=== PATIENT | female | born 1975 | race Caucasian/White ===

== ENCOUNTER → 2024-10-08 13:45 | Outpatient (CLI) | payer OTHER, SELFPAY ==
--- NOTE | 2024-10-08 13:48 | DI.RAD.S_ITS ---
PROCEDURE: XR HIP W PEL IF DONE LT 2V INDICATIONS: left hip pain, chronic TECHNIQUE: AP pelvis with lateral view(s) of the left hip(s). COMPARISON: None. FINDINGS: Bones: No fractures or dislocations. Moderate to severe left hip osteoarthritic degenerative change includes significant joint space narrowing with marginal osteophytosis and mild flattening of the femoral head. There is acetabular subchondral sclerosis. Pelvic ring appears intact. No suspicious bony lesions. Soft tissues: The visualized bowel gas pattern is normal. No suspicious soft tissue calcifications. IMPRESSION: Degenerative change of the left hip without evidence of acute osseous abnormality. Dictated by: Vince Johnson M.D. on 10/08/2024 at 17:15 Approved by: Vince Johnson M.D. on 10/08/2024 at 17:16
== END ==
LOC: RAD 13:47
PROVIDERS: PCP Family Medicine; Referring Provider Family Medicine; Visit Provider Family Medicine
DX: M25.552 Pain in left hip (principal)
CPT/HCPCS: 73502

== ENCOUNTER → 2024-10-18 10:53 | Outpatient (CLI) | payer OTHER, SELFPAY ==
[2024-10-18 18:06] LABS: Add Manual Diff / Slide Review NO; Basophils Absolute Auto 0 /uL (0-100); Basophils Percent Auto 0.8 % (0-2); Eosinophils Absolute Auto 100 /uL (0-450); Hematocrit 42.6 % (36-46); Hemoglobin 14.5 g/dL (12.0-16.0); Lymphocytes Absolute Auto 2400 /uL (1100-4500); Lymphocytes Percent Auto 38.9 % (25-40); Mean Corpuscular HGB Conc 34.1 % (30-36); Mean Corpuscular Hemoglobin 30.9 PG (26-34); Mean Corpuscular Volume 90.8 fL (80-100); Monocytes Absolute Auto 300 /uL (0-900); Monocytes Percent Auto 4.9 % (3-14); Neutrophils Absolute Auto 3300 /uL (1500-7000); Neutrophils Percent Auto 53.4 % (50-75); Platelet Count 391 X10^3/uL (150-400); Red Blood Cell Count 4.69 X10^6/uL (4.0-5.2); Red Cell Distribution Width 12.6 % (11.6-14.8); White Blood Cell Count 6.2 X10^3/uL (4.5-11.0)
[2024-10-18 18:11] LABS: Alanine Aminotransferase 65 IU/L (<35); Albumin 4.3 g/dL (3.5-5.0); Albumin Globulin Ratio 1.6 (1.0-2.8); Alkaline Phosphatase 80 U/L (38-126); Aspartate Aminotransferase 35 IU/L (14-36); BUN Creatinine Ratio 22.2 (6-22); Bilirubin Total 0.6 mg/dL (0.2-1.3); Blood Urea Nitrogen 14 mg/dL (7-17); Calcium 9.8 mg/dL (8.4-10.2); Carbon Dioxide 28 mmol/L (22-32); Chloride 102 mmol/L (98-107); Cholesterol 251 mg/dL (140-199); Estimated Glomerular Filt Rate > 60 mL/min (>60); Globulin 2.7 g/dL (1.7-4.1); Glucose 90 mg/dL (70-100); HDL Cholesterol 68 mg/dL (40-60); HEMOLYSIS < 15 (0-50); LDL Cholesterol Calculated 161 mg/dL (<100); Potassium 4.5 mmol/L (3.4-5.1); Sodium 137 mmol/L (137-145); Triglycerides 111 mg/dL (35-150)
[2024-10-18 18:41] LABS: Thyroid Stimulating Hormone 1.22 uIU/mL (0.47-4.68)
== END ==
PROVIDERS: PCP Family Medicine; Visit Provider Family Medicine
DX: R23.2 Flushing (principal); E78.2 Mixed hyperlipidemia; Z13.6 Encounter for screening for cardiovascular disorders; Z13.1 Encounter for screening for diabetes mellitus; Z13.29 Encounter for screening for other suspected endocrine disorder; Z13.0 Encounter for screening for diseases of the blood and blood-forming organs and certain disorders involving the immune mechanism
CPT/HCPCS: 80053; 80061; 84443; 85025

== ENCOUNTER → 2024-12-31 11:55 | Outpatient (CLI) | payer OTHER, SELFPAY ==
--- NOTE | 2024-12-31 12:13 | EKG_ITS ---
[address] [address] Test Date: 2024-12-31 Pat Name: Liberte Liberte Department: [facility] Room: Gender: Female Data Collection Technician: DWIGHT : 1975 Requested By: Order Number: [id number] Reading MD: Jose Leonardo Measurements Intervals [place] Rate: 76 P: 52 CT: 186 QRS: 41 QRSD: 76 T: 41 QT: 366 QTc: 411 Interpretive Statements Normal sinus rhythm Low voltage QRS Electronically Signed On 12-31-2024 14:02:02 PDT by Jose Leonardo
[2024-12-31 12:53] LABS: Hemoglobin A1C% w Est Avg Glu 4.9 % (4.0-6.0)
[2024-12-31 13:02] LABS: Albumin 4.6 g/dL (3.5-5.0); BUN Creatinine Ratio 17.7 (6-22); Blood Urea Nitrogen 11 mg/dL (7-17); Calcium 9.7 mg/dL (8.4-10.2); Carbon Dioxide 29 mmol/L (22-32); Chloride 102 mmol/L (98-107); Estimated Glomerular Filt Rate > 60 mL/min (>60); Glucose 72 mg/dL (70-99); HEMOLYSIS < 15 (0-50); Potassium 4.3 mmol/L (3.4-5.1); Sodium 139 mmol/L (137-145)
[2024-12-31 13:09] LABS: Add Manual Diff / Slide Review NO; Basophils Absolute Auto 0 /uL (0-100); Basophils Percent Auto 0.5 % (0-2); Eosinophils Absolute Auto 100 /uL (0-450); Eosinophils Percent Auto 1.4 % (2-4); Hematocrit 42.6 % (36-46); Hemoglobin 14.9 g/dL (12.0-16.0); Lymphocytes Absolute Auto 2300 /uL (1100-4500); Lymphocytes Percent Auto 35.8 % (25-40); Mean Corpuscular Hemoglobin 31.5 PG (26-34); Mean Corpuscular Volume 89.8 fL (80-100); Monocytes Absolute Auto 300 /uL (0-900); Monocytes Percent Auto 4.1 % (3-14); Neutrophils Absolute Auto 3800 /uL (1500-7000); Neutrophils Percent Auto 58.2 % (50-75); Platelet Count 380 X10^3/uL (150-400); Red Blood Cell Count 4.74 X10^6/uL (4.0-5.2); White Blood Cell Count 6.5 X10^3/uL (4.5-11.0)
[2024-12-31 13:11] LABS: Prealbumin 25.7 mg/dL (17.6-36.0)
[2024-12-31 15:46] LABS: Vitamin D 25 Hydroxy (D3) 30.1 ng/mL (30.0-100.0)
== END ==
PROVIDERS: PCP Family Medicine; Referring Provider Orthopaedic Surgery Adult Reconstructive Orthopaedic Surgery; Visit Provider Orthopaedic Surgery Adult Reconstructive Orthopaedic Surgery
DX: Z01.818 Encounter for other preprocedural examination (principal); M16.12 Unilateral primary osteoarthritis, left hip; Z68.37 Body mass index [BMI] 37.0-37.9, adult
CPT/HCPCS: 36415; 72170; 80048; 82040; 82306; 83036; 84134; 85025; 93005; 99214

== ENCOUNTER → 2025-02-06 07:50 | Outpatient (CLI) | payer BC, SELFPAY ==
--- NOTE | 2025-02-06 07:52 | DI.MG.S_ITS ---
MM screening mammo BI: 02/06/2025. BI-RADS: 1 CLINICAL: 49-year old female for bilateral screening mammogram. Tyrer-Cuzick lifetime risk of 10.5%. No personal or first-degree family history of breast cancer. PRIOR EXAMS: 03/29/23, 12/28/22. MAMMOGRAPHY TECHNIQUE: 2D and 3D (tomosynthesis) digital mammographic views obtained, with additional images as needed for full coverage. Current study was also evaluated with a Computer Aided Detection (CAD) system. DENSITY C. The breasts are heterogeneously dense, which may obscure small masses. MAMMOGRAPHY FINDINGS Bilateral: No suspicious mass, asymmetry, microcalcification, or other abnormality seen. No significant change from comparison. IMPRESSION: * No evidence of malignancy. RECOMMENDATIONS Bilateral * Annual screening mammography. OVERALL ASSESSMENT CATEGORY BI-RADS-1: Negative. The [employer] recommends annual screening mammography beginning at age 40 for women with average risk of breast cancer. ELECTRONICALLY SIGNED: Scott Gleason M.D. on 02/06/2025 at 01:35:54 PM PT Interpreting Station ID: [id number]
[2025-02-06 09:13] LABS: Alanine Aminotransferase 36 IU/L (<35); Albumin 4.3 g/dL (3.5-5.0); Albumin Globulin Ratio 1.5 (1.0-2.8); Alkaline Phosphatase 66 U/L (38-126); Cholesterol 215 mg/dL (140-199); Globulin 2.8 g/dL (1.7-4.1); HDL Cholesterol 66 mg/dL (40-60); HEMOLYSIS < 15 (0-50); Total Protein 7.1 g/dL (6.3-8.2); Triglycerides 79 mg/dL (35-150)
[2025-02-07 00:10] LABS: Hepatitis A Antibody IgM Negative (Negative); Hepatitis B Core Antibody IgM Negative (Negative); Hepatitis C Antibody Non Reactive (Non Reactive)
== END ==
PROVIDERS: PCP Family Medicine; Referring Provider Family Medicine; Visit Provider Family Medicine
DX: Z12.31 Encounter for screening mammogram for malignant neoplasm of breast (principal); R92.333 Mammographic heterogeneous density, bilateral breasts; R74.01 Elevation of levels of liver transaminase levels; E78.2 Mixed hyperlipidemia; M16.12 Unilateral primary osteoarthritis, left hip
CPT/HCPCS: 36415; 77063; 77067; 80061; 80074; 80076; 99214

== ENCOUNTER 2025-03-03 11:26 | Day surgery (SDC) | payer BC, SELFPAY ==
[2025-02-26 08:20] VITALS: BMI 39.1
[2025-03-03] VITALS (11 sets, daily range): BP systolic 87–116; BP diastolic 51–84; PULSE 75–94; RESP 14–20; TEMP 35.5–36.3; O2SAT 94–99; BMI 36.7
--- NOTE | 2025-03-03 06:00 | DI.RAD.S_ITS ---
PROCEDURE: XR HIP W PEL IF DONE LT 2V INDICATIONS: post-op NADYA LEFT TECHNIQUE: 2 view(s) of the hip acquired. COMPARISON: [facility], [facility], XR HIP W PEL IF DONE LT 2V, 10/08/2024, 13:44. FINDINGS: Bones: Patient is status post left hip arthroplasty, with hardware components in expected positions. The hip joint appears congruent. The visualized bony structures appear intact. Soft tissues: Overlying postoperative changes are noted. No suspicious soft tissue densities. IMPRESSION: Expected post-operative appearance of a hip arthroplasty. Dictated by: Vince Johnson M.D. on 03/05/2025 at 18:58 Approved by: Vince Johnson M.D. on 03/05/2025 at 18:59
--- NOTE | 2025-03-03 12:08 | PT-IP ANOTE ---
PT order received. PT calls post-op area who reports that pt hasn't even had surgery yet and is scheduled for surgery at 1345. Will d/c this order and await a new one post-op with any precautions and after a op report is available.
--- NOTE | 2025-03-03 12:09 | OT.IPNOTE ---
OT received OT eval. PT called and post-op area and discussed pt order. Pt is scheduled for surgery at 1345. D/C current order. Pt will need a new order following sx.
[2025-03-03] MEDS: ACETAMINOPHEN 325 MG TABLET 975 MG PO (13:12)
[2025-03-03] MEDS: LACTATED RINGERS 1,000 ML 100 ML IV ×2 (13:14→20:10)
--- NOTE | 2025-03-03 13:43 | PM.PREOP ---
Pre-operative Note Interval Note History & Physical reviewed/Exam performed by Physician: Yes Changes to H&P: No H&P completed within 30 days and has changed as indicated here:: Operative side is 8 mm shorter radiographically and this aligns with physical exam. Discussed with patient that operative side will feel like it has been lengthened which is intentional
[2025-03-03] MEDS: TRANEXAMIC ACID 1,000 MG VIAL 1000 MG INJ ×2 (15:10→17:04)
[2025-03-03] MEDS: CEFAZOLIN 2 GM/100 ML PREMIX 100 ML IV ×2 (15:15→20:10)
--- NOTE | 2025-03-03 15:32 | SUR.OPER ---
Supine on padded [place] table with bilateral legs secured in padded positioning boots and suspended in positioning spars, operative leg in traction per surgeon. Head on one pillow. Bilateral arms secured on padded armboards <90 degrees abduction. Padded perineal post in place per surgeon.
--- NOTE | 2025-03-03 15:37 | SUR.OPER ---
3% hydrogen peroxide, povidone-iodine, normal saline irrigation
[2025-03-03] MEDS: BUPIVACAINE 0.5% W/ EPI (PF) 30 ML VIAL INJ ×2 (15:42→15:43)
[2025-03-03] MEDS: KETOROLAC 30 MG/ML VIAL INJ (15:44)
--- NOTE | 2025-03-03 17:02 | P.OP_ITS ---
Operative Date/Time/Diagnoses Date of procedure: 03/03/25 Time of procedure: 15:00 Pre-op diagnosis: Left hip osteoarthritis Post-op diagnosis: same Procedure & Clinicians Procedure: Left total hip arthroplasty with computer-assisted fluoroscopic analysis Same procedure(s) as scheduled: Yes Surgeon: Kamron Lindsey Outside Dealer Sales Representative: Michell Ritter Anesthesia Type: Spinal, Sedation and Local Operative Notes Findings: Severe left hip arthritis Applied: implant(s) Estimated Blood Loss (mL): 250 Procedure in detail: 1. Left Uncemented Direct Anterior Suzanna Total Hip Arthroplasty (61291) 2. Computer-Assisted Musculoskeletal Surgical Navigational Orthopedic Procedure Using Fluoroscopic Image Guidance (0054T) Implants: * G7 PPS size 56 cup? * Z1 femoral stem size 4 coxa vara? * 36 mm +3.5 ceramic femoral head? Procedure Summary: This 49-year-old female patient had a severely arthritic hip with shortening. There was lot of tension during exposure of the femur and a conjoined tendon release was required in order to gain access for broaching. I initially trialed with implants that were a high offset and +3.5 head. This had excess offset and leg lengths so I transitioned to a coxa vara neck and a +0 head. This had instability with 100? of external rotation but was appropriate fluoroscopically. I therefore attempted to increase my offset by going back to a +3.5 head but minimize any iatrogenic over lengthening by sinking the broach further down the stem. I was able to sink the broach by 3 mm, the length that I had measured excessive from a fluoroscopic perspective during my trialing. I did another round of trialing and had good stability as well as appropriate leg length and offset parameters with those trials so those definitive implants were used. Procedure in Detail: This patient was seen preoperatively and evaluated for hip pain which was refractory to numerous nonoperative treatment modalities. Their hip pain correlated with radiographic changes demonstrating significant degeneration in the hip joint. The risks and benefits of continued nonoperative management versus operative management were discussed at length and all of the patient?s questions were answered. Additional educational materials providing further details beyond our discussion in clinic were provided via a publicly available patient education video which included the incidence of medical complications associated with total hip arthroplasty, reasons for revision following total hip arthroplasty, and patient satisfaction rates following total hip arthroplasty. With this understanding of the risks inherent to the procedure, the patient elected to move forward with operative management. Following preoperative optimization, the patient was scheduled for surgery. The patient was met in the preoperative holding area the day of the procedure and all questions were answered. The patient?s nares were swabbed in order to decolonize them from MRSA. Informed consent was signed and the left limb was marked with indelible ink.? The patient was brought back to the operating room where anesthesia was induced. The patient was transferred to the [place] table and all bony prominences were padded. The operative site was prepped and draped in the usual sterile fashion. Prior to incision, tranexamic acid and cefazolin were administered. Operative templating images were displayed demonstrating the anticipated implant sizes and correct operative extremity. A timeout procedure was performed verifying the patient?s identity, medical comorbidities, allergies, relevant medications, anesthesia type and the surgical plan. All present were in agreement. The assistance of a physician butcher assistant was required for positioning, room setup, soft tissue retraction and wound closure. Without this assistance, the procedure would have been significantly more challenging and time consuming.?? A direct anterior approach to the hip was utilized. This was performed with a longitudinal incision through a Heuter interval. The incision was planned 2 cm distal and 2 cm lateral to the ASIS extending towards the lateral patella, in line with the muscle body of the TFL. Following incision, the subcutaneous tissue was dissected while taking care to avoid injury to the lateral femoral cutaneous nerve. The fascia overlying the TFL was identified by dissecting off the overlying fat and identifying perforating vessels to the TFL. The TFL fascia was incised and dissected away from the medial border of the TFL. A retractor was placed over the superior femoral neck between the abductors and the hip capsule and used to reflect the TFL laterally. A [place] self-retainer was then placed in the distal aspect of the wound between the TFL and the rectus femoris. This was tensioned to open up the direct anterior interval and the lateral circumflex vessels were identified and coagulated using electrocautery. The floor of the TFL fascia was incised, exposing the pericapsular fat overlying the hip capsule. A second cobra retractor was placed on the inferior femoral neck. A retractor was placed on the anterior wall of the acetabulum and used to tension the reflected head of rectus femoris, which was then released in order to limit soft tissue tension. A capsulotomy was made in the midline of the anterior hip capsule in line with the femoral neck ending at the vastus tubercle. The anterior retractor was removed as soon as the capsulotomy was completed in order to limit the amount of time that a soft tissue retractor remained on the anterior wall and limit tension on the femoral nerve. Tag stitches were placed in the superior and inferior leaflets of the hip capsule. An [place] soft tissue retractor was introduced over the tag stitches and tensioned in the interval between the rectus femoris and the TFL in order to retract and protect those muscles. The cobra retractors were replaced intracapsularly, with one over the superior neck in the pocket created by the base of the greater trochanter and the other on the femoral head. The capsulotomy was extended laterally to the base of the greater trochanter and medially to the lesser trochanter. This required externally rotating the hip. Once the lesser trochanter had been identified, a neck cut was planned according to measurements from preoperative templating. A ruler was cut at the length measured between the superior aspect of the lesser trochanter and the collar of the prosthesis. This line was extended towards the inferior aspect of the lateral cobra retractor to plan a cut which would leave minimal residual femoral neck laterally. The neck was cut at 60 degrees of external rotation along that line. A second cut was performed to remove a large napkin ring and facilitate head extraction. The napkin ring cut and femoral head were removed.?? A broad anterior wall retractor was placed between the labrum and the anterior capsule so that the anterior capsule would prevent capturing and pinching the femoral nerve anteriorly. An additional retractor was placed on the posterior wall. External rotation and traction were applied through the [place] table so that the cut surface of the femoral neck would not restrict access to the acetabulum. The labrum was excised sharply and the pulvinar was excised with electrocautery to limit bleeding from branches of the obturator artery. Acetabular reamers were selected based on preoperative templating and measurements of the excised femoral head. These were introduced into the acetabulum. Fluoroscopy was utilized to replicate a standing AP pelvis radiograph by centering over the pelvis, rotating until there was appropriate symmetry between the obturator foramen, and introducing caudal tilt to match the position of the pubic symphysis relative to the sacrococcygeal junction according to the patient?s anatomy. Once satisfied with the reaming depth corresponding to the preoperative template and the pinch fit between the columns, an appropriate sized acetabular cup was selected which would provide 1 mm of press-fit. This cup was introduced and manipulated until appropriate abduction and anteversion angles were obtained with careful attention to appropriate abduction and anteversion angles as evaluated by the position of the cup relative to the anterior and posterior menendez of the acetabulum and the AP fluoroscopy which recreated the patient?s standing radiograph. The cup was impacted into place. Peripheral osteophytes were removed. The acetabular liner was then placed with care to ensure locking of the locking mechanism. Attention was then turned to the femur. All retractors were removed, traction was released, a retractor was placed in the interval between the hip capsule and the gluteus minimus. The lateral capsule was released using electrocautery. Traction was released and a [place] hook was placed posteriorly around the proximal femur at the level of the vastus ridge. The table height was lowered in order to restrict the tension on the anterior structures during hip hyperextension to limit the risk of femoral nerve palsy. With traction off and the hip at 90 degrees of external rotation, the hip was hyperextended and adducted while manually elevating the femur away from the acetabulum with the [place] hook to avoid hooking the greater trochanter on the pelvis. An asymmetric retractor was placed over the calcar and a broad double-pronged retractor was placed over the greater trochanter. The tag stitch capturing the lateral leaflet of the capsule was moved to the medial side, leaving the conjoined and piriformis tendons isolated in the face of the greater trochanter. The hip was externally rotated and elevated. A release of the conjoined tendon was necessary in order to obtain adequate exposure for broaching. The canal was opened with an opening broach and a rasp was used to remove cancellous bone. A rongeur was used to remove the res idual lateral bone at the base of the greater trochanter to avoid placing the stem in varus. The femur was then broached to the appropriate sized stem yielding good rotational fit and fill of the canal as well as appropriate version of the stem trial. Neck and head trials were placed, all retractors were removed and the hip was returned to neutral abduction and extension. I then reduced the hip and manually trialed it before changing surgical gloves. Initial trialing was performed with a size 4 broach, a high offset neck and a +3.5 head. I initially manually externally rotated the hip and found no instability. I then locked the hip in 45 degrees of external rotation and dropped it to the floor with traction off which demonstrated no instability. An AP pelvis fluoroscopic image matching the preoperative standing radiograph with both lesser trochanters visible and both hips in 40 degrees of external rotation demonstrated that the offset and leg lengths were both excessive relative to the other side. I therefore transitioned to a coxa vara neck to decrease my leg lengths and a +0 head to decrease both my leg lengths and my offset. This was appropriate fluoroscopically but was now unstable. I trialed again with a coxa vara neck and a +3.5 head and found that it was stable and had slight increased offset but also had slight increased leg length. I therefore felt that it was g oing to be necessary to further sink the broach in order to decrease my leg lengths. AP and lateral hip fluoroscopic images were obtained to evaluate the broach size which demonstrated that the stem would likely tolerate being sunk further down the canal. The hip was dislocated and I returned to the broaching position. Based on my evaluation during initial trialing I planned to sink the stem further and then retrial. This is what I did. I got about 3 more mm of depth out of the broach and then trialed with the coxa vara neck and the +3.5 head. This had appropriate stability as I was unable to manually dislocate the hip and there was no instability with a 45 degree drop test. The fluoroscopic parameters were appropriate as well. I therefore returned to the broaching position and placed the definitive implants. The definitive stem was placed and the trunnion was cleaned and dried. I placed a ceramic head onto the trunnion and impacted it into place on the [place] taper.?? All retractors were removed and the hip was reduced. A dilute mixture of betadine and peroxide was used to bathe the soft tissues during final fluoroscopic assessment. Appropriate component positioning was confirmed on an AP pelvis radiograph with the operative and nonoperative legs in 40 degrees of external rotation, evaluating leg length and offset. Appropriate stem fill was evaluated on AP and lateral hip radiographs. No previously unrecognized fractures were identified on these radiographs. There was no hip instability with maximum (110?) external rotation as well as a 45 degree drop test. The hip was copiously irrigated with pulse lavage. The capsule was closed with absorbable interrupted suture. The TFL fascia was closed with barbed suture while carefully protecting the lateral femoral cutaneous nerve from entrapment. A mixture of Ropivacaine, Epinephrine and Toradol was infiltrated throughout the soft tissues. The skin was closed with 2-0 and 3-0 sutures. Surgical glue was applied and a soft dressing was placed.??The sponge, instrument and needle counts were reported as being correct at the end of the case.??No obvious complications occurred. The patient was transferred from the [place] table back to a stretcher. The patient emerged from anesthesia without difficulty and was taken to the PACU in a stable condition.? Plan for aftercare: * No hip precautions * Weightbearing as tolerated * Aspirin 81 twice per day for DVT prophylaxis * Anticipate discharge home tomorrow. Patient will need to travel by [place] to return home * Yanira incisional wound VAC in place. This can be maintained for 2 weeks. The battery will after a week at which point the cord can be removed and it can be used as a normal dressing until follow up * Multimodal pain regimen with no IV opioids ordered * Follow up at [facility] in 2 weeks Complications: none Post-operative Condition: stable Disposition: PACU
--- NOTE | 2025-03-03 17:03 | DI.RAD.S_ITS ---
PROCEDURE: XR HIP W PEL IF DONE LT 2V INDICATIONS: POST OP LEFT TOTAL HIP ANTERIOR TECHNIQUE: AP pelvis with lateral view(s) of the left hip(s). COMPARISON: [facility], [facility], XR HIP W PEL LT 2V, 03/03/2025, 16:05. [facility], [facility], XR HIP W PEL IF DONE LT 2V, 10/08/2024, 13:44. FINDINGS: Bones: No fractures or dislocations. Pelvic ring appears intact. No suspicious bony lesions. Left hip arthroplasty projects in the expected location. Soft tissues: The visualized bowel gas pattern is normal. No suspicious soft tissue calcifications. IUD in the pelvis. IMPRESSION: Left hip arthroplasty projects in the expected location. Dictated by: Luis Burrows M.D. on 03/04/2025 at 12:45 Approved by: Luis Burrows M.D. on 03/04/2025 at 12:47
[2025-03-03] MEDS: BENZOCAINE/MENTHOL 1 LOZ PKT 1 EACH PO ×2 (18:44→21:54)
[2025-03-03 19:10] LABS: Hematocrit 36.6 % (36-46); Hemoglobin 12.9 g/dL (12.0-16.0)
[2025-03-03] MEDS: ACETAMINOPHEN 325 MG TABLET 650 MG PO (20:09)
[2025-03-03] MEDS: IBUPROFEN 600 MG TABLET PO (20:09)
[2025-03-03] MEDS: DOCUSATE 100 MG CAPSULE PO (20:09)
[2025-03-03] MEDS: ASPIRIN EC 81 MG TABLET PO (20:09)
[2025-03-03] MEDS: OXYCODONE IR 5 MG TABLET PO (22:00)
[2025-03-04] MEDS: ACETAMINOPHEN 325 MG TABLET 650 MG PO ×2 (01:01→07:55)
[2025-03-04] MEDS: OXYCODONE IR 5 MG TABLET PO ×3 (01:02→08:35)
[2025-03-04] MEDS: IBUPROFEN 600 MG TABLET PO ×2 (01:02→07:55)
[2025-03-04] MEDS: BENZOCAINE/MENTHOL 1 LOZ PKT 1 EACH PO ×3 (01:04→10:43)
[2025-03-04] MEDS: CEFAZOLIN 2 GM/100 ML PREMIX 100 ML IV (04:04)
[2025-03-04 04:30] VITALS: BP 103/84; PULSE 91; RESP 16; TEMP 36.2; O2SAT 95
[2025-03-04 05:36] LABS: Hematocrit 32.0 % (36-46); Hemoglobin 11.3 g/dL (12.0-16.0)
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
[2025-03-04] MEDS: DOCUSATE 100 MG CAPSULE PO (07:56)
[2025-03-04] MEDS: ASPIRIN EC 81 MG TABLET PO (07:56)
[2025-03-04] MEDS: CHOLECALCIFEROL (VITAMIN D3) 1,000 UNIT TABLET 1000 UNIT PO (08:33)
[2025-03-04 09:00] VITALS: BP 116/72; PULSE 96; RESP 16; TEMP 36.2; O2SAT 98
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
--- NOTE | 2025-03-04 10:52 | PC.NURSE ---
Pt has been cleared by PT/OT, IV has been removed and she is getting dressed with assistance from her daughter Mare. Went over d/c instructions with Pt and Daughter-discussed d/c meds, time of last dose, reviewed stroke education, hip precautions, VIVIANA dsg, drinking plenty of fluids to prevent constipation or dehdyration, s/s of infection, showering and follow up. Pt knows that she cannot drive while taking narcotics. Pt denied further questions and will be taken out via w/c by EXPLOSIVES OPERATOR to POV with Daughter and all belongings.
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
== END 2025-03-04 11:21 | disposition home or self-care (01) ==
LOC: OR 11:58 → AC 12:01
PROVIDERS: Physician Assistant Surgical; PCP Family Medicine; Referring Provider Orthopaedic Surgery Adult Reconstructive Orthopaedic Surgery; Visit Provider Orthopaedic Surgery Adult Reconstructive Orthopaedic Surgery
PROC: (CPT 27130; principal; 2025-03-03 13:45)
DX: M16.12 Unilateral primary osteoarthritis, left hip (principal); M25.752 Osteophyte, left hip
CPT/HCPCS: 27130; 0054T; 36415; 73502; 76000; 85014; 85018; 97161; 97165; 97530; 97535; C1776; C1713; J0690; J1885; J2250; J2704; J3010

== ENCOUNTER → 2025-05-13 13:54 | Outpatient (CLI) | payer BC, SELFPAY ==
[2025-03-03 12:09] VITALS: BMI 36.7
--- NOTE | 2025-05-13 13:59 | DI.RAD.S_ITS ---
PROCEDURE: XR FINGER RT MIN 2V INDICATIONS: comment please on R fifth finger mass- lateral/palmar aspect TECHNIQUE: AP hand, 2 views of the right 5th finger(s) acquired. COMPARISON: None. FINDINGS: Bones: No fractures or dislocations. No suspicious bony lesions. Background polyarticular degenerative changes are noted. Soft tissues: No suspicious soft tissue calcifications. There is a focal soft tissue density is seen over the palmar aspect of the distal right 5th finger at the level of the DIP joint measuring approximately 1.0 cm in size. No underlying osseous erosions. No associated soft tissue calcifications. IMPRESSION: Subtle, focal soft tissue density over the palmar aspect of the distal right 5th finger at the level of the IP joint without associated osseous abnormalities. Consider ultrasound or MRI for further characterization. Dictated by: Ricco Strange M.D. on 05/15/2025 at 11:12 Approved by: Ricco Strange M.D. on 05/15/2025 at 11:15
[2025-05-13 14:39] LABS: Hematocrit 41.1 % (36-46); Hemoglobin 14.0 g/dL (12.0-16.0); Mean Corpuscular HGB Conc 34.1 % (30-36); Mean Corpuscular Hemoglobin 30.1 PG (26-34); Mean Corpuscular Volume 88.3 fL (80-100); Platelet Count 334 X10^3/uL (150-400)
[2025-05-13 15:37] LABS: Ferritin 23 ng/mL (11-264)
[2025-05-13 15:39] LABS: HEMOLYSIS < 15 (0-50); Iron 106 ug/dL (37-170)
[2025-05-13 15:51] LABS: Percent Iron Saturation 28 % (15-50); Total Iron Binding Capacity 381 ug/dL (265-497); Transferrin 321 mg/dL (206-381)
== END ==
PROVIDERS: PCP Family Medicine; Referring Provider Family Medicine; Visit Provider Family Medicine
DX: R22.31 Localized swelling, mass and lump, right upper limb (principal); D64.9 Anemia, unspecified; R10.9 Unspecified abdominal pain
CPT/HCPCS: 36415; 73140; 82728; 83540; 83550; 85027